=== PATIENT | female | born 1965 | race Caucasian/White ===

== ENCOUNTER → 2020-09-04 12:06 | Outpatient (CLI) | payer OTHER, SELFPAY ==
--- NOTE | ~2020-09-04 | MR_ITS ---
EXAMINATION: MR knee RT wo con DATE: 09/04/2020 13:01 INDICATION: Right knee pain TECHNIQUE: Magnetic resonance imaging (MRI) of the right knee was performed without intravenous contr ast. Sequences included coronal PD-weighted FSE, coronal PD-weighted FS FSE, sagittal T2-weighted FS E, sagittal PD-weighted FS FSE and axial PD weighted fat saturated FSE. COMPARISON: None. FINDINGS: Medial compartment: There is medial extrusion of the medial meniscal body resulting from a radial tear at the posterior r oot of the medial meniscus with approximately 1 cm medial distraction from the footplate of the poste rior root. Deep chondral ulceration along the anterior to central weightbearing medial femoral condyl e and anterior half of the medial tibial plateau, both with minimal underlying cortical irregularity and scattered subarticular edema. Lateral compartment: Lateral meniscus is normal. Articular cartilage is normal. Patellofemoral compartment: Partial-thickness cartilage loss and deep fissuring at the medial patellar facet and apical ridge. Ch ondral ulceration and deep fissuring with minimal underlying cortical irregularity at the caudal aspe ct of the trochlear groove and medial trochlea. Ligaments and tendons: Anterior and posterior cruciate ligaments are normal. The medial collateral ligament and fibular kathleen ateral ligament complex are normal. The extensor mechanism is normal. The visualized medial and later al hamstring tendons as well as the iliotibial band are normal. Fluid: Small right knee joint effusion. No loose osteochondral bodies identified. Osseous/other: Geographic regions of red marrow reexpansion in the metaphyseal and diaphyseal regions of the distal femur and proximal tibia and fibula. No fracture or pathologic marrow replacing process. IMPRESSION: 1. Avulsion of the posterior root of the medial meniscus with superior medial extrusion of the menisc al body. 2. Moderate osteoarthritis in the medial compartment with extensive high-grade chondromalacia. 2. Mild patellofemoral osteoarthritis with small regions of moderate to high-grade chondromalacia. Reviewed, dictated and finalized at location A. IMPRESSION: 1. Avulsion of the posterior root of the medial meniscus with superior medial e xtrusion of the meniscal body. 2. Moderate osteoarthritis in the medial compartment with extensive high-grade chondromalacia. 2. Mild patellofemoral osteoarthritis with small regions of moderate to high-gr sakina chondromalacia.
== END ==
PROVIDERS: PCP Family Medicine; Visit Provider Orthopaedic Surgery
DX: M17.11 Unilateral primary osteoarthritis, right knee (principal)
CPT/HCPCS: 73721

== ENCOUNTER 2020-10-24 07:41 | Outpatient (CLI) | payer OTHER, SELFPAY ==
--- NOTE | 2020-10-24 08:37 | ECG_ITS ---
Measurements Intervals [place] Rate: 70 P: 63 NC: 154 QRS: 31 QRSD: 76 T: 36 QT: 377 QTc: 407 Interpretive Statements SINUS RHYTHM WITH SINUS ARRHYTHMIA BASELINE ARTIFACT- I, III, AVR, AVL NORMAL ECG Electronically Signed On 10-24-2020 9:01:37 CDT by Naseem Donnelly D.O.
[2020-10-24 08:57] LABS: Basophils Percent Auto 0.4 % (0.2-1.2); Eosinophils Absolute Auto 0.1 K/mm3 (0-0.3); Eosinophils Percent Auto 1.5 % (0-4.4); Hematocrit 40.2 % (37.0-47.0); Immature Granulocyte Absolute 0.08 K/mm3 (0.00-0.031); Immature Granulocyte Percent A 1.1 % (0-0.5); Lymphocytes Absolute Auto 1.95 K/mm3 (0.9-3.2); Lymphocytes Percent Auto 26.2 % (18.3-44.2); Mean Corpuscular HGB Conc 32.3 g/dl (32-36); Mean Corpuscular Volume 89.7 fl (80-100); Mean Platelet Volume 10.2 fl (7.4-10.4); Monocytes Absolute Auto 0.6 K/mm3 (0.1-0.6); Monocytes Percent Auto 7.7 % (2.6-8.5); Neutrophils Absolute Auto 4.7 K/mm3 (1.3-6.7); Neutrophils Percent Auto 63.1 % (45.5-73.1); Platelet Count Result 266 k/mm3 (150-375); Red Blood Count 4.48 M/mm3 (4.2-5.4); Red Cell Distribution Width 13.2 % (11.5-14.5); White Blood Count 7.4 K/mm3 (4.5-10.0)
[2020-10-24 09:15] LABS: Albumin Level 4.6 g/dL (3.5-5.1); Estimated Glomerular Filt Rate > 60; Glucose 111 mg/dL (65-105)
[2020-10-24 09:17] LABS: Hemoglobin A1C 5.3 % (<5.7)
[2020-10-24 12:45] LABS: Urine Cotinine NEGATIVE
== END 2020-10-24 07:42 | disposition home or self-care (01) ==
LOC: ANHSURGERY 07:44
PROVIDERS: PCP Family Medicine; Visit Provider Orthopaedic Surgery
DX: M17.11 Unilateral primary osteoarthritis, right knee (principal); Z01.818 Encounter for other preprocedural examination
CPT/HCPCS: 80307; 82040; 82565; 82947; 83036; 85025; 87081; 93005

== ENCOUNTER → 2020-11-02 00:39 | Outpatient (CLI) | payer OTHER, SELFPAY ==
[2020-11-02 17:52] LABS: SARS-CoV-2 RNA PCR Negative
== END ==
PROVIDERS: PCP Family Medicine; Visit Provider Orthopaedic Surgery
DX: Z01.812 Encounter for preprocedural laboratory examination (principal); Z20.822 Contact with and (suspected) exposure to COVID-19
CPT/HCPCS: C9803; U0003; U0005

== ENCOUNTER 2020-11-05 01:50 | Day surgery (SDC) | payer OTHER, SELFPAY ==
[2020-10-24 07:53] VITALS: BMI 36.1
[2020-10-24 08:08] VITALS: BP 135/82; PULSE 72; RESP 16; TEMP 36.8; O2SAT 100
--- NOTE | 2020-11-02 16:02 | P.PNAN_ITS ---
Anes - Initial Pre Proc Eval Procedure: Operation Date: 11/05/20 07:30 Proposed Procedures p Right Total Knee Arthroplasty - Prudencio Aguiar MD Date/Time: 11/02/20 16:02 Surgeon: Prudencio Aguiar MD Pre Op Diagnosis: OA right knee Patient Data Age: 54 Gender: F Height: 1.65 m Weight: 98.4 kg Last Vital Signs Temp 36.8 C 10/24/20 08:08 Pulse 72 10/24/20 08:08 Resp 16 10/24/20 08:08 BP 135/82 10/24/20 08:08 Pulse Ox 100 10/24/20 08:08 Allergies Allergy/AdvReac Type Severity Reaction Status Date / Time No Known Allergies Allergy Unverified 10/24/20 07:54 Home Medications Medication Instructions Recorded Confirmed Type naproxen sodium [Aleve] 440 mg PO PRN PRN 10/24/20 10/25/20 History rivaroxaban 10 mg tablet 10 mg PO DAILY #14 tablet 10/25/20 10/25/20 Rx Patient hx anesthesia problems: none Family hx anesthesia problems: none PMFSH Past Medical History Medical History Osteoarthritis of right knee Social History Social History Smoking status: Never smoker Additional smoking assessment comments: DENIES ANY FORM OF TOBACCO USE Alcohol intake: current Drinks per week: 2 Living arrangements: with family Additional occupation/education comments: [employer] Gender identity (if verbalized by the patient): Female Spiritual care concerns: Yes (ANABAPTISM) Anes - Eval Final PreProcedure Day of Procedure 11/02/20 16:02 Patient weight: obese Heart: regular rate and rhythm Lungs: clear to auscultation and normal air movement Airway: Mallampati scale class II Neurological: alert and oriented Last oral intake: >/= 8 hours ASA classification: II Emergent: no Anesthetic plan: proceed Anesthesia type and monitoring: regional spinal and standard monitoring Informed Consent: The patient's anesthetic plan and its attendant risks and benefits were discussed with the patient/family/POA. Questions were solicited and answers provided to the satisfaction of the patient/family/POA.
[2020-11-05] VITALS (13 sets, daily range): BP systolic 102–146; BP diastolic 59–87; PULSE 55–110; RESP 13–21; TEMP 36.3–37; O2SAT 95–100; BMI 36.6
--- NOTE | ~2020-11-05 | XR_ITS ---
EXAMINATION: XR knee RT 2V DATE: 11/05/2020 10:37 INDICATION: Postoperative evaluation following right total knee arthroplasty. TECHNIQUE: Anteroposterior and lateral views of the right knee were obtained. COMPARISON: None. FINDINGS: Right total knee arthroplasty with patellar resurfacing appears well seated and in near anatomic alig nment. No fractures identified. Expected postoperative subcutaneous and intra-articular gas. IMPRESSION: 1. Right total knee arthroplasty, negative for postoperative purposes. Reviewed, dictated and finalized at location A.
[2020-11-05] MEDS: ACETAMINOPHEN 500 MG TABLET 1000 MG PO ×3 (06:29→21:04)
[2020-11-05] MEDS: TRANEXAMIC ACID 1,000MG/ISO100 1,000 MG/100 ML BAG 200 MG IVPB (06:31)
[2020-11-05] MEDS: LACTATED RINGERS 1,000 ML 30 ML IV CONT ×2 (06:43→10:28)
--- NOTE | 2020-11-05 07:21 | WPDHPUPDATE1 ---
History and Physical Update Update Date/Time: 11/05/20 07:21 History and Physical has been reviewed, including an updated exam of the patient. There are NO changes in the patient's condition. Risks, benefits, and alternatives have been discussed and questions answered. Patient agrees to proceed with procedure.
--- NOTE | 2020-11-05 07:28 | WPDANESPNB ---
Anes - Peripheral Nerve Block Date/Time: 11/05/20 07:28 I have discussed with the patient/family/POA the placement of a peripheral nerve block for post-operative pain management, including associated risks, benefits, complications, and side effects. Alternative methods of post-operative analgesia were detailed. Questions were solicited and answers provided to the satisfaction of the patient/family/POA. Time-Out: A pre-procedural Time-Out was completed immediately before starting the procedure and confirmed: Patient Identification, Site, Procedure, Patient Position and the Availability of Requisite Equipment. Clinical Indications: Acute post-operative pain management requested by the operative surgeon. Nerve Block Insertion Note Anes-nerve block: adductor canal right Patient position: supine Skin prep: chlorhexidine Needle: 22 gauge, stimulating, insulated echogenic needle. Needle length: 80 mm Technique: ultrasound Injectate: bupivacaine 0.5% with epi 5 mcg/ml (30cc - no epi) Observations: tolerated well Complications: none Procedure start time:: 723 Procedure end time:: 727
[2020-11-05] MEDS: ceFAZolin 2 GM/D5W 50 ML 2 GM/50 ML BAG IVPB ×3 (07:39→21:05)
[2020-11-05] MEDS: GENTAMICIN BONE CEMENT REFOBACIN 1 EACH TOPICAL (09:15)
[2020-11-05] MEDS: BUPIVACAINE/EPINEPHRINE 0.25% 10 ML VIAL 60 ML INFILTRATE (09:30)
[2020-11-05] MEDS: ceFAZolin SODIUM 1 GM VIAL IV PUSH (09:41)
--- NOTE | 2020-11-05 10:13 | W.PM.PROC2 ---
Procedure Note - Detailed Date of Procedure 11/05/20 Pre-op Diagnosis OA right knee Post-op Diagnosis same Procedure Performed right total knee replacement Surgeon Prudencio Aguiar MD [employer] Anesthesia regional and spinal Indications see H&P Description of Procedure The patient was identified and proper site identified. In the preop holding area the anesthesia team performed a right sub sartorial block after which the patient was taken to the operating room and transferred to the OR table positioning supine taking care to pad the torso and extremities. After administration of a spinal anesthetic, a nonsterile tourniquet was placed high on the right thigh. The right lower extremity was prepped and draped in the usual sterile fashion. The extremity was exsanguinated and with the knee flexed tourniquet was inflated to 300 mmHg remaining up for approximately 62 minutes. An anterior midline incision was made and a modified medial parapatellar approach was used. Infra and suprapatellar fat pads were excised. Patella was resected leaving 15 mm thickness and prepared for the 31 round three peg component. Using the intramedullary guide the distal femur was cut in the proper orientation for the size 62.5 femoral component. Using the extramedullary guide the tibia was cut perpendicular to the long axis protecting collateral ligaments and popliteal structures. It was sized to a 67. Flexion and extension gaps were balanced. Trial reduction was undertaken and the weight-bearing line was noted to passed through the center of the joint. Proximal tibia was drilled and punched in the proper orientation for the real component. Trial components were removed. The bone surfaces were washed with pulsatile lavage and dried. The real components were cemented simultaneously. The knee was held in extension and the patella held clamped until the cement had cured. Excess cement was removed from the joint. After trialing it was determined that the 11 mm insert gave full range of motion from 0-110 degrees of flexion which it is maximum flexion for this patient due to thigh calf contact and the patella tracked in the femoral groove with no lift-off. After final lavage the joint the real 11 E poly insert was placed and secured with a locking bar. A Betadine and saline wash was placed into the wound and allowed to sit for approximately 3 minutes and then evacuated. Periarticular tissues were infiltrated with 60 cc of the arthroplasty solution. 1 g of tranexamic acid was left in the wound. The extensor mechanism was repaired with #2 Vicryl suture and 0 looped PDS suture. Subcu was reapproximated with 2. Vicryl, three 0 Monocryl, and two of strata fix with tissue adhesive for the skin. A sterile dressing was applied. She tolerated the procedure well, was awakened and extubated, transferred to the bed and was taken to recovery area in stable condition. There were no known intraoperative complications. Perioperative antibiotics were administered. Estimated Blood Loss 150 Tourniquet Time 62 Drains No Pathology none sent Complications No immediate complications Condition stable Disposition PACU
[2020-11-05] MEDS: fentaNYL CITRATE INJ (*CRX) 100 MCG/2 ML VIAL 25 MCG IV PUSH ×6 (10:35→11:41)
--- NOTE | 2020-11-05 11:35 | SUR.PHASEI ---
[id number] sbar faxewd floor notified
--- NOTE | 2020-11-05 12:13 | ADMGEN ---
This patient, Jennifer Shearer, was admitted to -. Patient/family oriented to hospital policies and general routines including ID bracelet, bed and alarms, visiting hours, pain management, procedures, bathroom and other care routines, personal items, smoking policy, room service/diet, and visiting hours. Information on how to activate the Rapid Response Team has been discussed. Patient/Family are encouraged to report perceived risks to care and to ask questions if they do not understand what they are told or what they should do.
[2020-11-05] MEDS: SODIUM CHLORIDE 0.9% IV 1,000 ML 125 ML IV CONT (12:46)
[2020-11-05] MEDS: KETOROLAC 15 MG/ML VIAL (*BKC) IV PUSH ×2 (12:46→18:34)
[2020-11-05] MEDS: oxyCODONE HCL (*CRX) 5 MG TAB IR PO ×3 (12:46→21:04)
[2020-11-05] MEDS: ONDANSETRON INJ 4 MG/2 ML VIAL IV PUSH (14:26)
[2020-11-05] MEDS: DOCUSATE SODIUM 100 MG CAPSULE PO (18:35)
[2020-11-05] MEDS: FAMOTIDINE 20 MG TABLET PO (21:04)
[2020-11-06] MEDS: oxyCODONE HCL (*CRX) 5 MG TAB IR PO ×4 (00:30→13:05)
[2020-11-06] MEDS: KETOROLAC 15 MG/ML VIAL (*BKC) IV PUSH (00:30)
[2020-11-06 02:00] VITALS: BP 115/66; PULSE 60; RESP 20; TEMP 36.6; O2SAT 98
[2020-11-06] MEDS: ACETAMINOPHEN 500 MG TABLET 1000 MG PO ×2 (05:28→13:05)
[2020-11-06] MEDS: ceFAZolin 2 GM/D5W 50 ML 2 GM/50 ML BAG IVPB (05:29)
[2020-11-06 06:00] VITALS: BP 112/64; PULSE 69; RESP 20; TEMP 36.3; O2SAT 98
--- NOTE | 2020-11-06 07:25 | PM.DS ---
DS: Admitting Diagnosis Admitting Diagnosis osteoarthritis right knee DS: Discharge Diagnosis Discharge Diagnosis (1) History of right knee joint replacement: Code(s): Z96.651 - Presence of right artificial knee joint Status: Acute (2) Osteoarthritis of right knee: Qualifiers: Osteoarthritis type: primary Qualified Code(s): M17.11 - Unilateral primary osteoarthritis, right knee Code(s): M17.11 - Unilateral primary osteoarthritis, right knee Status: Chronic Assessment and Plan: Patient will be discharged home today after physical therapy. Plan follow-up in the office in approximately two weeks. DS: Summary Hospital Course Reason for hospitalization: Observation after outpatient procedure. Hospital Course: Following the patient's surgery, she was admitted to the floor. Therapy was begun. She has made good progress and is going to be discharged home later today, postop day one. Status at Discharge Functional status at discharge: uses cane/walker Overall status at discharge: patient is not back to baseline Time Spent with Patient Time attestation: Total time spent providing and/or coordinating discharge services: Exam Const: General: cooperative, no acute distress and alert Nutritional Appearance: other Orientation/consciousness: patient oriented x3 Limitations: no limitations HENMT: Head: normal to inspection Ears: hearing grossly normal bilaterally Face and sinus: face symmetric Mouth: Yes moist mucous membranes Teeth and gingiva: fair dentition Eyes: Alignment and Position: alignment normal and position normal Sclera: sclerae normal Neck: Neck: normal visual inspection and nontender Chest: Chest palpation & inspection: normal inspection of the chest Resp: Effort & Inspection: normal respiratory effort and able to speak in complete sentences GI: Inspection: other ( Nondistended, nontender) Skin: General skin exam: normal color Rashes: no rashes Neuro: General: patient oriented x3 Cognition (Neuro): normal cognition Speech: normal speech Gait exam (Neuro): Other gait observations present Extrem: General: normal to inspection and other Other: Exam of the right knee reveals moderate swelling with some bruising. Two very little spots of drainage on the dressing, each one measuring less than 1 cm. Grossly motor and sensory function unremarkable right lower extremity. Psych: Appearance: grossly normal Mental Status: mental status grossly normal Discharge Plan Discharge Patient Disposition: Home, Self-Care Discharge Instructions: 3 times daily for 20 minutes each time, reclining in bed with ice packs over the incision and a pillow underneath the calf of the affected leg, not under the knee. Change your knee dressing tomorrow. We will check with you on to see how the incision is doing. Do not get in the shower at this point. Sponge bathing is fine. Be sure to read through all the information that came from a my office and the hospital. Most of the answers you will need can be found that material. Call the office with any questions that you cannot find answers to, or concerns you may have. After the Xarelto is completed, start taking one coated 325 mg aspirin daily and do this for four more weeks. Please call [facility] at as soon as possible to is verify your follow-up appointment to be seen in 2 weeks. Also, call the office with any orthopedic/surgical related questions prior to follow-up. Be sure to get up and move around several times daily but do not overdo it. If you write out a schedule, it will be easiest to keep track of your medication. Take the arthritis formula Tylenol 650 mg tablet on an 8 hour schedule. A good 8 hour schedule is: 6:00 a.m., 2:00 p.m., 10:00 p.m. you may take the prescribed pain medication along with the Tylenol; it is not to be taken instead of the Tylenol. I would like for you to take the Ty
--- NOTE | 2020-11-06 07:25 | WPDANESPN ---
Anes - Prog Note Post-Op Date/Time: 11/06/20 07:25 Cardiovascular status: normal Respiratory status: normal Airway patency: baseline Mental status: baseline Post-Op hydration status: normal Vital Signs: Last Vital Signs Temp 36.3 C L 11/06/20 06:00 Pulse 69 11/06/20 06:00 Resp 20 11/06/20 06:00 BP 112/64 11/06/20 06:00 Pulse Ox 98 11/06/20 06:00 Pain Score (VAS): 3 I/O: Intake & Output 11/05/20 11/05/20 11/06/20 15:59 23:59 07:59 Intake Total 600 2290 50 Output Total 800 700 500 Balance -200 1590 -450 Post-procedural complaints: none Patient Feedback: Patient satisfied with anesthetic care.
[2020-11-06] MEDS: FAMOTIDINE 20 MG TABLET PO (09:19)
[2020-11-06] MEDS: RIVAROXABAN 10 MG TABLET PO (09:19)
[2020-11-06] MEDS: polyethylene glycoL 3350 17 GM POWD.PACK PO (09:19)
[2020-11-06] MEDS: DOCUSATE SODIUM 100 MG CAPSULE PO (09:19)
[2020-11-06 10:00] VITALS: BP 118/67; PULSE 67; RESP 20; TEMP 36.4; O2SAT 100
--- NOTE | 2020-11-06 14:53 | PC.NURSE ---
2 dressings sent home with patient
== END 2020-11-06 15:12 | disposition home or self-care (01) ==
LOC: ANHSURGERY 05:57 → ANH2MED 12:17
PROVIDERS: PCP Family Medicine; Visit Provider Orthopaedic Surgery
PROC: (CPT 27447; principal; 2020-11-05 07:30)
DX: M17.11 Unilateral primary osteoarthritis, right knee (principal); G89.18 Other acute postprocedural pain; E66.9 Obesity, unspecified; Z68.36 Body mass index [BMI] 36.0-36.9, adult
CPT/HCPCS: 27447; 64447; 73560; 80307; 82040; 82565; 82947; 83036; 85025; 87081; 93005; 97110; 97116; 97161; 97165; 97530; 97535; A9270; C1713; C1776; C9803; J0690; J1885; J2250; J2405; J2704; J3010; J7030; J7120; U0003; U0005

== ENCOUNTER 2020-11-13 15:35 | Outpatient (CLI) | payer OTHER, SELFPAY ==
--- NOTE | ~2020-11-13 | US_ITS ---
EXAMINATION: US venous doppler LE RT DATE: 11/13/2020 16:03 INDICATION: Right lower limb pain TECHNIQUE: Grider scale images without and with compression and Doppler images of the right lower extre mity veins were obtained. COMPARISON: None FINDINGS: The peroneal veins are not evaluated due to patient's body habitus. The right common femora l vein, profunda femoral vein, femoral vein, popliteal vein, posterior tibial veins, and greater saph enous vein are patent. IMPRESSION: 1. Patent right lower extremity veins. No evidence of deep venous thrombosis. Peroneal veins not visu alized due to body habitus. Reviewed, dictated and finalized at location A. IMPRESSION: 1. Patent right lower extremity veins. No evidence of deep venous thrombosis. P eroneal veins not visualized due to body habitus.
== END 2020-11-13 15:36 | disposition home or self-care (01) ==
LOC: ANHIMG 15:37
PROVIDERS: PCP Family Medicine; Visit Provider Orthopaedic Surgery
DX: M79.661 Pain in right lower leg (principal); M79.89 Other specified soft tissue disorders
CPT/HCPCS: 93971